=== PATIENT | male | born 1980 | race Two or more races ===

== ENCOUNTER 2018-05-08 05:51 | Inpatient (IN) | payer MEDICARE, OTHER ==
[~2018-05-08] VITALS: Ht 175.3 cm; Wt 96.6 kg
--- NOTE | 2018-05-08 17:02 | History & Physical ---
History and Physical History & Physicial Vital Signs -Extended Height: 69 inches Temperature: 98.6 degrees F (oral) Pulse rate: 61 /min Pulse rhythm: regular Respirations: 13 /min O2 Sat: 95% Blood Pressure: 130/71 mm Hg 05/09/18 History of Present Illness Hx. Source: patient Primary complaint: Patient is here for follow up and evaluation Duration: 3 days Trend of sx: worsening Fever: low grade Treatment: None Additional HPI: 37 year old male patient presents today for follow up. The patient is currently complaining of a insect bite on his right foot with significant drainage and inflammation. He notes redness and tenderness. patient denies any trauma or lul nails Active Medications (reviewed today): NORCO 10-325 MG ORAL TABLET (HYDROCODONE-ACETAMINOPHEN) 1 tab q6hr prn Current Allergies (reviewed today): No known allergies No Known Drug Allergies Past History Past Medical History (reviewed - no changes required): Teratoma Lumbar disc disease L5S1, herniated Asthma Surgical History (reviewed - no changes required): testicular cancer with orchiectomy left 1996 chemotherapy for mature teratoma 1996 metastatic tumor with exploratory abdominal surgery 1997 Family History (reviewed - no changes required): Mother is alive and doing well. Father is alive and doing well. Social History (reviewed - no changes required): Patient lives alone in [place]. Patient is a musician. He has no children. He went to [employer]. 2016 Risk Factors: Smoked Tobacco Use: Current every day smoker Cigarettes: Yes -- 1 pack(s) per day, Year started: 1991 Years smoked: 24 Smokeless Tobacco Use: Former Passive smoke exposure: yes Drug use: yes Substance: marijuana Caffeine use: 1 drinks per day Alcohol use: no Review of Systems General: fevers fatigue Eyes: denies blurring, diplopia, irritation, discharge, vision loss, eye pain, photophobia Ear/Nose/Throat: denies ear pain or discharge, tinnitus, decreased hearing, nasal obstruction or discharge, nosebleeds, sore throat, hoarseness, dysphagia Cardiovascular: stable at present Respiratory: cough shortness of breath intermittent Gastrointestinal: Denies nausea, vomiting, diarrhea, constipation, change in bowel habits, abdominal pain, melena, hematochezia, jaundice Genitourinary: teratoma Skin: SEE HPI Physical Exam General Appearance: well nourished, well hydrated, no acute distress Respiratory Respiratory Effort: no intercostal retractions or use of accessory muscles Palpation: normal fremitus Auscultation: no rales, rhonchi, or wheezes Cardiovascular Palpation: no thrill or palpable murmurs, no displacement of PMI Auscultation: S1, S2, no murmur, rub, or gallop Carotid arteries: pulses 2+, symmetric, no bruits Peripheral Circulation: no cyanosis, clubbing, edema, or varicosities Musculoskeletal Gait and Station: normal but has pain Digits and nails: foot with bite arriola, pus draining associated erythema and inflammation and tenderness Problems Added: Insect bite (ICD-919.4) (NTV76-N16.xxxA) Sciatica (ICD-724.3) (LAS51-D91.30) Foot infection, left (ICD-686.9) (VBP47-H21.9) Assessment RIGHT FOOT INFECTION POSSIBLE ABCESS CHRONIC PAIN ASTHMA BUG BITE Plan IN A PRISON IV ANTIBIOTICS NEEDED ADMIT WOUND CARE CT FOOT LOCAL CARE PAIN CONTROL Jeromy Rod MD May 08, 2018 17:02
[2018-05-09 07:48] VITALS: BP 115/69
[2018-05-09] MEDS ORDERED: Milk of Magnesia 30ml Ud ORAL PRN (10:15)
[2018-05-09] MEDS ORDERED: Zolpidem 5mg tab ORAL PRN (10:15)
[2018-05-09] MEDS: Norco 5mg/325mg tab ORAL PRN ×2 (10:47→22:52)
[2018-05-09 11:04] LABS: BASOPHILS % (AUTO) 1.1 % (0.0-2.0); EOSINOPHILS % (AUTO) 1.3 % (0.0-3.0); HEMATOCRIT 41.9 % (42.0-52.0); HEMOGLOBIN 14.4 G/DL (14.2-18.0); LYMPHOCYTES % (AUTO) 32.8 % (20.0-45.0); MEAN CORPUSCULAR VOLUME 82 FL (80-99); MONOCYTES % (AUTO) 7.8 % (1.0-10.0); NEUTROPHILS % (AUTO) 57.1 % (45.0-75.0); PLATELET COUNT 194 K/UL (150-450); RED BLOOD COUNT 5.13 M/UL (4.70-6.10); RED CELL DISTRIBUTION WIDTH 11.5 % (11.6-14.8); WHITE BLOOD COUNT 8.3 K/UL (4.8-10.8)
[2018-05-09 11:32] LABS: ANION GAP 9 mmol/L (5-15); BLOOD UREA NITROGEN 10 mg/dL (7-18); CALCIUM 9.4 MG/DL (8.5-10.1); CARBON DIOXIDE 25 MMOL/L (21-32); CHLORIDE 105 MMOL/L (98-107); CREATININE 1.2 MG/DL (0.55-1.30); POTASSIUM 3.6 MMOL/L (3.5-5.1); SODIUM 139 MMOL/L (136-145)
--- NOTE | 2018-05-09 12:15 | General Progress Note ---
Assessment/Plan Assessment/Plan cellulitis possible abcess pain patient presented for admission still with drainage and difficulty with weight bearing culture ID evaluation Subjective Allergies: Coded Allergies: No Known Allergies (Unverified , 05/09/18) Objective Last 24 Hour Vital Signs Date Time Temp Pulse Resp B/P (MAP) Pulse Ox O2 Delivery O2 Flow Rate FiO2 05/09/18 11:46 98.1 05/09/18 11:19 Room Air 05/09/18 10:47 98.1 05/09/18 07:48 98.1 56 20 115/69 (84) 100 98.1 Laboratory Tests 05/09/18 10:55: White Blood Count 8.3, Red Blood Count 5.13, Hemoglobin 14.4, Hematocrit 41.9L, Mean Corpuscular Volume 82, Mean Corpuscular Hemoglobin 28.1, Mean Corpuscular Hemoglobin Concent 34.4, Red Cell Distribution Width 11.5L, Platelet Count 194, Mean Platelet Volume 8.1, Neutrophils (%) (Auto) 57.1, Lymphocytes (%) (Auto) 32.8, Monocytes (%) (Auto) 7.8, Eosinophils (%) (Auto) 1.3, Basophils (%) (Auto ) 1.1, Erythrocyte Sedimentation Rate 5, Sodium Level 139, Potassium Level 3.6, Chloride Level 105, Carbon Dioxide Level 25, Anion Gap 9, Blood Urea Nitrogen 10 , Creatinine 1.2, Estimat Glomerular Filtration Rate > 60, Glucose Level 134H, Calcium Level 9.4 Height (Feet): 5 Height (Inches): 9.00 Weight (Pounds): 213 Jeromy Rod MD May 09, 2018 12:15
[2018-05-09] MEDS: Levofloxacin 500mg tab ORAL SCH (12:34)
[2018-05-09 12:49] VITALS: BP 101/53
[2018-05-09] MEDS: Vancomycin 1250mg/D5W 250ml IVPB SCH (13:57)
--- NOTE | 2018-05-09 15:21 | Diagnostic Imaging Report ---
Indication: Insect bite to the right foot, with drainage and inflammation Technique: No IV contrast, per referring physician request Spiral acquisitions obtained through the right foot. Multiplanar reconstructions were generated. Total dose length product 477 mGycm. CTDIvol(s) 15 mGy. Radiation dose was minimized using automated exposure control Comparison: none Findings: Evaluation for abscess is somewhat limited given the absence of IV contrast administration. There is some focal infiltration of the subcutaneous fat of the plantar anterolateral surface of the foot adjacent to the fifth metatarsal head. There is somewhat diffuse but only mild edema of the plantar subcutaneous fat in the region of the metatarsophalangeal joints in general. There is slight circumferential edema about the first digit, most pronounced medially. No definite discrete fluid collection to suggest abscess, although as mentioned above evaluation for such is limited in the absence of IV contrast. The bones are unremarkable. The joint spaces are preserved. No acute fractures or dislocations, osteolytic or osteoblastic process. Impression: Limited assessment for abscess, given absence of IV contrast. Nonetheless, no focal findings suspicious for such are identified. Mild focal edema of the subcutaneous fat adjacent to the fifth metacarpal head and about the great toe. This is nonspecific, but could indicate cellulitis given stated clinical history No acute osseous abnormality. The CT scanner at [facility] is accredited by the [employer] and the scans are performed using protocols designed to limit radiation exposure to as low as reasonably achievable to attain images of sufficient resolution adequate for diagnostic evaluation.
[2018-05-09 20:00] VITALS: BP 108/65
[2018-05-09] MEDS: Zolpidem 5mg tab ORAL PRN (21:33)
[2018-05-10] MEDS: Vancomycin 1250mg/D5W 250ml IVPB SCH ×2 (01:08→13:47)
[2018-05-10 04:00] VITALS: BP 104/45
[2018-05-10] MEDS: Norco 5mg/325mg tab ORAL PRN ×4 (05:06→19:24)
[2018-05-10 08:13] VITALS: BP 106/50
[2018-05-10] MEDS: Levofloxacin 500mg tab ORAL SCH (08:48)
[2018-05-10] MEDS ORDERED: Levofloxacin 500mg tab ORAL SCH (11:38)
[2018-05-10 12:00] VITALS: BP 103/51
--- NOTE | 2018-05-10 15:43 | General Progress Note ---
Assessment/Plan Problem List: (1) Celulitis & infected bite Status: stable Assessment/Plan cont iv abx follow up cultures pain rx wound care Subjective ROS Limited/Unobtainable: No Constitutional: Reports: malaise, weakness HEENT: Reports: no symptoms Cardiovascular: Reports: no symptoms Respiratory: Reports: no symptoms Gastrointestinal/Abdominal: Reports: no symptoms Genitourinary: Reports: no symptoms Neurologic/Psychiatric: Reports: no symptoms Endocrine: Reports: no symptoms Hematologic/Lymphatic: Reports: no symptoms Allergies: Coded Allergies: No Known Allergies (Unverified , 05/09/18) All Systems: reviewed and negative except above Subjective c/o foot pain. CT negative for osteo. +subcut edema Objective Last 24 Hour Vital Signs Date Time Temp Pulse Resp B/P (MAP) Pulse Ox O2 Delivery O2 Flow Rate FiO2 05/10/18 14:49 97.3 05/10/18 13:50 97.3 05/10/18 12:00 97.7 52 20 103/51 (68) 95 97.7 05/10/18 09:00 Room Air 05/10/18 08:51 97.3 05/10/18 08:13 97.3 55 20 106/50 (68) 95 97.3 05/10/18 04:00 97.4 52 20 104/45 (64) 97.4 05/09/18 21:00 Room Air 05/09/18 20:00 97.9 54 19 108/65 (79) 97.9 Intake and Output 05/09/18 05/10/18 19:00 07:00 Intake Total 840 ml 1750.000 ml Balance 840 ml 1750.000 ml Intake Oral 840 ml 1500 ml IV Total 250.000 ml # Voids 1 3 # Bowel Movements 2 Height (Feet): 5 Height (Inches): 9.00 Weight (Pounds): 213 General Appearance: WD/WN, alert Neck: supple Cardiovascular: regular rhythm Respiratory/Chest: lungs clear Abdomen: normal bowel sounds, non tender, soft, no organomegaly Extremities: other - right foot swelling and edema Damien Sadler MD May 10, 2018 15:42
[2018-05-10 16:00] VITALS: BP 106/54
[2018-05-10 20:00] VITALS: BP 96/51
[2018-05-10] MEDS ORDERED: oxyCONTIN 10mg tab ORAL PRN (20:15)
[2018-05-10] MEDS: Zolpidem 5mg tab ORAL PRN (20:29)
[2018-05-11] MEDS: Vancomycin 1250mg/D5W 250ml IVPB SCH (01:48)
[2018-05-11 04:00] VITALS: BP 136/67
[2018-05-11] MEDS: HYDROcodone/Acetamin 10/325 tab ORAL PRN ×4 (04:29→20:23)
--- NOTE | 2018-05-11 07:23 | General Progress Note ---
Assessment/Plan Problem List: (1) Celulitis & infected bite Assessment/Plan cont iv abx follow up cultures/sensitivities pain rx wound care Subjective ROS Limited/Unobtainable: No Constitutional: Reports: no symptoms HEENT: Reports: no symptoms Cardiovascular: Reports: no symptoms Respiratory: Reports: no symptoms Gastrointestinal/Abdominal: Reports: no symptoms Genitourinary: Reports: no symptoms Neurologic/Psychiatric: Reports: no symptoms Endocrine: Reports: no symptoms Hematologic/Lymphatic: Reports: no symptoms Allergies: Coded Allergies: No Known Allergies (Unverified , 05/09/18) All Systems: reviewed and negative except above Subjective c/o foot pain. controlled, with norco. CT negative for osteo. +subcut edema. culture with staph Objective Last 24 Hour Vital Signs Date Time Temp Pulse Resp B/P (MAP) Pulse Ox O2 Delivery O2 Flow Rate FiO2 05/11/18 05:28 98.0 05/11/18 04:29 98.0 05/11/18 04:00 98.2 52 20 136/67 (90) 98 98.2 05/10/18 21:00 Room Air 05/10/18 20:23 98.0 05/10/18 20:00 97.8 50 18 96/51 (66) 99 97.8 05/10/18 19:24 98.0 05/10/18 16:00 98.0 54 18 106/54 (71) 96 98.0 05/10/18 14:49 97.3 05/10/18 13:50 97.3 05/10/18 12:00 97.7 52 20 103/51 (68) 95 97.7 05/10/18 09:00 Room Air 05/10/18 08:51 97.3 05/10/18 08:13 97.3 55 20 106/50 (68) 95 97.3 Intake and Output 05/10/18 05/11/18 19:00 07:00 Intake Total 1850.000 ml 1250.000 ml Output Total 100 ml Balance 1850.000 ml 1150.000 ml Intake Oral 1600 ml 1000 ml IV Total 250.000 ml 250.000 ml Output Urine Total 100 ml # Voids 7 4 Laboratory Tests 05/10/18 18:20: Hemoglobin A1c 5.1 05/10/18 23:50: Vancomycin Level Trough 8.6 Height (Feet): 5 Height (Inches): 9.00 Weight (Pounds): 213 Objective General Appearance: WD/WN, alert Neck: supple Cardiovascular: regular rhythm Respiratory/Chest: lungs clear Abdomen: normal bowel sounds, non tender, soft, no organomegaly Extremities: other - right foot swelling and edema Damien Sadler MD May 11, 2018 07:23
[2018-05-11 08:00] VITALS: BP 107/80
[2018-05-11] MEDS: Levofloxacin 500mg tab ORAL SCH (09:00)
[2018-05-11] MEDS: Vancomycin 1.5 GM/D5W 250ML IVPB SCH ×2 (11:49→21:43)
[2018-05-11 12:30] VITALS: BP 109/59
[2018-05-11 16:00] VITALS: BP 108/53
[2018-05-11 20:00] VITALS: BP 125/61
[2018-05-11] MEDS ORDERED: NS 275ml ONE (21:13)
[2018-05-11] MEDS ORDERED: Tubing IV Secondary IV ONE (21:13)
[2018-05-11] MEDS: Zolpidem 5mg tab ORAL PRN (21:43)
[2018-05-12] MEDS: HYDROcodone/Acetamin 10/325 tab ORAL PRN ×5 (03:28→23:14)
[2018-05-12 04:00] VITALS: BP 114/61
[2018-05-12 08:00] VITALS: BP 122/62
[2018-05-12] MEDS: Levofloxacin 500mg tab ORAL SCH (08:38)
--- NOTE | 2018-05-12 08:40 | General Progress Note ---
Assessment/Plan Problem List: (1) Celulitis & infected bite Status: stable, progressing Assessment/Plan cont iv abx follow up cultures/sensitivities pain rx wound care po abx tomorrow and dc Subjective ROS Limited/Unobtainable: No Constitutional: Reports: no symptoms HEENT: Reports: no symptoms Cardiovascular: Reports: no symptoms Respiratory: Reports: no symptoms Gastrointestinal/Abdominal: Reports: no symptoms Genitourinary: Reports: no symptoms Neurologic/Psychiatric: Reports: no symptoms Endocrine: Reports: no symptoms Hematologic/Lymphatic: Reports: no symptoms Allergies: Coded Allergies: No Known Allergies (Unverified , 05/09/18) All Systems: reviewed and negative except above Subjective decreased foot pain. no fever or chills. on iv abx Objective Last 24 Hour Vital Signs Date Time Temp Pulse Resp B/P (MAP) Pulse Ox O2 Delivery O2 Flow Rate FiO2 05/12/18 08:02 Room Air 05/12/18 08:00 97.8 78 18 122/62 (82) 96 97.8 05/12/18 07:45 97.5 05/12/18 04:00 97.5 57 20 114/61 (78) 98 97.5 05/11/18 21:00 Room Air 05/11/18 20:00 97.9 53 18 125/61 (82) 97 97.9 05/11/18 16:00 98.0 49 20 108/53 (71) 96 98.0 05/11/18 15:38 98.0 05/11/18 14:39 97.9 05/11/18 12:30 97.9 49 18 109/59 (76) 97 97.9 05/11/18 09:00 98.0 05/11/18 09:00 Room Air Intake and Output 05/11/18 05/12/18 19:00 07:00 Intake Total 600 ml 500 ml Balance 600 ml 500 ml Intake Oral 600 ml 500 ml # Voids 10 2 # Bowel Movements 2 Height (Feet): 5 Height (Inches): 9.00 Weight (Pounds): 213 Objective General Appearance: WD/WN, alert Neck: supple Cardiovascular: regular rhythm Respiratory/Chest: lungs clear Abdomen: normal bowel sounds, non tender, soft, no organomegaly Extremities: other - right foot swelling and edema Damien Sadler MD May 12, 2018 08:40
[2018-05-12] MEDS ORDERED: NS 275ml ONE ×2 (10:40→10:41)
[2018-05-12] MEDS: Vancomycin 1.5 GM/D5W 250ML IVPB SCH ×2 (10:48→23:14)
[2018-05-12 12:00] VITALS: BP 114/59
[2018-05-12 15:51] VITALS: BP 113/57
[2018-05-12 20:00] VITALS: BP 121/63
[2018-05-12] MEDS: Zolpidem 5mg tab ORAL PRN (23:14)
[2018-05-13] VITALS: BP 126/67
[2018-05-13] MEDS: HYDROcodone/Acetamin 10/325 tab ORAL PRN ×3 (03:48→12:25)
[2018-05-13 04:00] VITALS: BP 122/64
[2018-05-13 08:00] VITALS: BP 144/73
[2018-05-13] MEDS ORDERED: Vancomycin 1.5 GM/D5W 250ML IVPB SCH (08:00)
--- NOTE | 2018-05-13 08:23 | General Progress Note ---
Assessment/Plan Assessment/Plan cellulitis no clear abcess pain, chronic cultures noted po levaquin wound care dc planning today impression, plan, and exam edited and reviewed in detail care discussed with RN Subjective Allergies: Coded Allergies: No Known Allergies (Unverified , 05/09/18) Subjective improved care noted no distress cultures noted Objective Last 24 Hour Vital Signs Date Time Temp Pulse Resp B/P (MAP) Pulse Ox O2 Delivery O2 Flow Rate FiO2 05/13/18 08:00 Room Air 05/13/18 07:54 98.1 05/13/18 04:47 98.1 05/13/18 04:00 98.1 59 14 122/64 (83) 97 98.1 05/13/18 00:00 98.4 55 14 126/67 (86) 97 98.4 05/12/18 21:00 Room Air 05/12/18 20:00 98.2 54 18 121/63 (82) 100 98.2 05/12/18 19:07 97.6 05/12/18 15:51 97.6 49 18 113/57 (75) 98 97.6 05/12/18 14:49 98.6 05/12/18 12:00 98.6 45 18 114/59 (77) 100 98.6 Intake and Output 05/12/18 05/13/18 19:00 07:00 Intake Total 1930 ml 1000 ml Balance 1930 ml 1000 ml Intake Oral 1680 ml 1000 ml IV Total 250 ml # Voids 6 4 # Bowel Movements 1 Laboratory Tests 05/12/18 21:40: Vancomycin Level Trough 5.9 Height (Feet): 5 Height (Inches): 9.00 Weight (Pounds): 213 Objective WDWN NAD clear breath sounds bilaterally without rhonchi or wheeze [id number] without MRG NABS nontender no HSM no CCE nonfocal foot improved Jeromy Rod MD May 13, 2018 08:23
[2018-05-13] MEDS: Levofloxacin 500mg tab ORAL SCH (08:31)
[2018-05-13] MEDS ORDERED: LEVAQUIN500 MG ORAL (10:11)
[2018-05-13 12:00] VITALS: BP 117/60
--- NOTE | 2018-05-14 14:46 | Discharge Summary ---
Discharge Summary Discharge Summary _ DATE OF ADMISSION: 05/09/2018 DATE OF DISCHARGE: 05/13/2018 REASON FOR ADMISSION: 37 years old male with history of asthma, lumbar disc disease L5-S1 with herniation, asthma, testicular cancer, s/p treatment, presented with complaints of right foot pain. He reported being bitten by bug at this site. Patient reported significant drainage and inflammation. He noted redness and tenderness to touch.. He denied any trauma or lul nails. Vital signs were stable . Laboratory workup was unremarkable. Patient admitted with diagnoses of right foot infection,, possible abscess , bug bite, pain right foot, asthma. HOSPITAL COURSE: Patient admitted. Patient started on empiric antibiotics. Wound care provided. Right foot CAT scan without contrast revealed no focal findings suspicious for abscess. No acute osseous abnormalities were noted. Mild focal edema of the subcutaneous adjacent to the fifth metacarpal head and about the great toe. This could indicate cellulitis, given clinical history. Wound culture revealed Staphylococcus aureus and Streptococci group A. Antibiotic regimen optimized as per attending physician. Pain management was addressed ,m and pain was controlled. Local wound care provided . Supplemental oxygen titrated to keep pulse oximetry above 92A%. Pulse oximetry was stable on room air. Pulmonary toilet provided as needed. No evidence of asthma exacerbations. Stable respiratory status. Bowel regimen instituted. Patient was mobilized with physical therapist with weight bearing as tolerated GI prophylaxis provided. Patient improved, no fever no leukocytosis. Patient was stable for discharge home . Outpatient follow-up with primary care provider in one week FINAL DIAGNOSES: Cellulitis right foot Infected bug bite Chronic pain Asthma DISCHARGE MEDICATIONS: See Medication Reconciliation list. DISCHARGE INSTRUCTIONS: Patient was discharge home. Follow up with primary care provider in one week. I have been assigned to dictate discharge summary for this account. I was not involved in the patient's management. Marzena Estrada NP May 14, 2018 14:46
== END 2018-05-13 13:00 | disposition home or self-care (01) | DRG 603 ==
LOC: 3E 05-09 06:00
DX: L03.115 Cellulitis of right lower limb (principal); J45.909 Unspecified asthma, uncomplicated; S90.861A Insect bite (nonvenomous), right foot, initial encounter; W57.XXXA Bitten or stung by nonvenomous insect and other nonvenomous arthropods, initial encounter; G89.29 Other chronic pain; M51.26 Other intervertebral disc displacement, lumbar region; Z85.47 Personal history of malignant neoplasm of testis
CPT/HCPCS: 36415; 80048; 80202; 83036; 85025; 85651; 87070; 87181; 87205

== ENCOUNTER 2018-05-21 06:34 | Inpatient (IN) | payer MEDICARE, OTHER ==
[~2018-05-21] VITALS: Ht 175.3 cm; Wt 98.9 kg
[~2018-05-21 06:34] MED LIST: LEVAQUIN500 MG ORAL
[2018-05-21 07:09] VITALS: BP 113/61
--- NOTE | 2018-05-21 07:12 | Emergency Room Report ---
History of Present Illness General Chief Complaint: Wound Recheck/Suture Removal Source: Patient Present Illness HPI Patient presents with right foot pain and left calf pain. He was recently admitted for IV antibiotics after bug bite to the right heel. He was discharged on antibiotics at home. Is complaining about left calf pain. He has had the diagnosis of adult teratoma in the leg pr. He states this is causing pain and there is more swelling at this time. He's had no recent evaluation for possible DVT. Denies any chest pain, cough, nausea, vomiting, diarrhea. He states the previously. Pain in his heel and calf are both severe , burning in the right heel aching in the calf radiating up towards the thigh on the left. When asked whether his tox screen of the positive he says that he does smoke marijuana and it might be positive for cocaine. No fevers or chills in the last few days. No cough, dyspnea, hemoptysis recently. No NVD or dysuria. No depression. A CT was done 05/09 which revealed no abscess. Impression: Limited assessment for abscess, given absence of IV contrast. Nonetheless, no focal findings suspicious for such are identified. Mild focal edema of the subcutaneous fat adjacent to the fifth metacarpal head and about the great toe. This is nonspecific, but could indicate cellulitis given stated clinical history No acute osseous abnormality. Allergies: Coded Allergies: No Known Allergies (Unverified , 05/09/18) Patient History Past Medical History: see triage record, old chart reviewed Social History: Reports: smoking, drug use Social History Narrative He got a ride to the hospital Reviewed Nursing Documentation: PMH: Agreed; PSxH: Agreed Nursing Documentation-PMH Hx Cardiac Problems: No Hx Asthma: Yes Hx Cancer: Yes - testicular ca 1996 Hx Gastrointestinal Problems: No Hx Neurological Problems: No Review of Systems All Other Systems: negative except mentioned in HPI Physical Exam Vital Signs Date Time Temp Pulse Resp B/P (MAP) Pulse Ox O2 Delivery O2 Flow Rate FiO2 05/21/18 06:45 98.2 77 16 113/61 95 Room Air 98.2 Sp02 EP Interpretation: reviewed, normal General Appearance: well appearing, no apparent distress, GCS 15 Head: normocephalic Eyes: bilateral eye normal inspection, bilateral eye PERRL ENT: moist mucus membranes Neck: supple Respiratory: lungs clear, normal breath sounds Cardiovascular #1: regular rate, rhythm Cardiovascular #2: 2+ radial (R) Gastrointestinal: normal inspection, normal bowel sounds, non tender, no mass, non-distended Musculoskeletal: back normal, gait/station normal, normal range of motion, calf tenderness, swelling, tender Neurologic: alert, oriented x3, normal gait, speech normal, grossly normal Psychiatric: mood/affect normal, other - poor insight Skin: warm/dry, other - erythema R heel Medical Decision Making Diagnostic Impression: Primary Impression: DVT, lower extremity Qualified Codes: I82.4Z2 - Acute embolism and thrombosis of unspecified deep veins of left distal lower extremity Additional Impressions: UTI (urinary tract infection) Qualified Codes: N30.00 - Acute cystitis without hematuria Partially treated cellulitis R heel Cocaine abuse ER Course Patient presents with 2 problems. One is increased heel pain on the right-hand side. He's taking antibiotics at this time. We need to assess whether there systemic effects of the partially treated infection. X-rays and labs will be taken. The second problem is calf pain on the left-hand side. We need to exclude DVT on that side. The patient will receive IV hydration and a dose of Toradol. WBC normal. EKG no injury. Pyuria - Rocephin ordered. Tox + cocaine. Foot film no gas or osteo. Vasc study + DVT. Lovenox given. Improved pain with treatment. Discussed with Dr. Rod. Admit med. Laboratory Tests Test 05/21/18 07:10 05/21/18 07:25 White Blood Count 9.7 K/UL (4.8-10.8) Red Blood Count 4.68 M/UL (4.70-6.10) L Hemoglobin 13.3 G/DL (14.2-18.0) L Hematocrit 38.4 % (42.0-52.0) L Mean Corpuscular Volume 82 FL (80-99) Mean Corpuscular Hemoglobin 28.3 PG (27.0-31.0) Mean Corpuscular Hemoglobin Concent 34.5 G/DL (32.0-36.0) Red Cell Distribution Width 11.5 % (11.6-14.8) L Platelet Count 214 K/UL (150-450) Mean Platelet Volume 7.4 FL (6.5-10.1) Neutrophils (%) (Auto) 54.6 % (45.0-75.0) Lymphocytes (%) (Auto) 33.8 % (20.0-45.0) Monocytes (%) (Auto) 7.6 % (1.0-10.0) Eosinophils (%) (Auto) 3.0 % (0.0-3.0) Basophils (%) (Auto) 1.0 % (0.0-2.0) Erythrocyte Sedimentation Rate 6 MM/HR (0-15) Prothrombin Time 11.6 SEC (9.30-11.50) H Prothrombin Time INR 1.1 (0.9-1.1) PTT 26 SEC (23-33) Sodium Level 143 MMOL/L (136-145) Potassium Level 3.2 MMOL/L (3.5-5.1) L Chloride Level 106 MMOL/L (98-107) Carbon Dioxide Level 28 MMOL/L (21-32) Anion Gap 9 mmol/L (5-15) Blood Urea Nitrogen 13 mg/dL (7-18) Creatinine 1.3 MG/DL (0.55-1.30) Estimate Glomerular Filtration Rate > 60 mL/min (>60) Glucose Level 112 MG/DL (74-106) H Calcium Level 9.2 MG/DL (8.5-10.1) Total Bilirubin 0.6 MG/DL (0.2-1.0) Aspartate Amino Transferase (AST) 18 U/L (15-37) Alanine Aminotransferase (ALT) 36 U/L (12-78) Alkaline Phosphatase 84 U/L (46-116) Total Creatine Kinase 182 U/L (26-308) Troponin I 0.000 ng/mL (0.000-0.056) Pro-B-Type Natriuretic Peptide 45 pg/mL (0-125) Total Protein 6.6 G/DL (6.4-8.2) Albumin 3.7 G/DL (3.4-5.0) Globulin 2.9 g/dL Albumin/Globulin Ratio 1.3 (1.0-2.7) Urine Color Pale yellow Urine Appearance Clear Urine pH 5 (4.5-8.0) Urine Specific [place] 1.020 (1.005-1.035) Urine Protein Negative (NEGATIVE) Urine Glucose (UA) Negative (NEGATIVE) Urine Ketones Negative (NEGATIVE) Urine Occult Blood 1+ (NEGATIVE) H Urine Nitrite Negative (NEGATIVE) Urine Bilirubin Negative (NEGATIVE) Urine Urobilinogen Normal MG/DL (0.0-1.0) Urine Leukocyte Esterase 3+ (NEGATIVE) H Urine RBC 0-2 /HPF (0 - 0) H Urine WBC 15-20 /HPF (0 - 0) H Urine Squamous Epithelial Cells Occasional /LPF Urine Bacteria Occasional /HPF (NONE) Urine Opiates Screen Negative (NEGATIVE) Urine Barbiturates Screen Negative (NEGATIVE) Phencyclidine (PCP) Screen Negative (NEGATIVE) Urine Amphetamines Screen Negative (NEGATIVE) Urine Benzodiazepines Screen Negative (NEGATIVE) Urine Cocaine Screen Positive (NEGATIVE) H Urine Marijuana (THC) Screen Negative (NEGATIVE) EKG Diagnostic Results Rate: normal Rhythm: NSR ST Segments: no acute changes Rhythm Strip Diag. Results EP Interpretation: yes Rhythm: NSR, no PVC's, no ectopy Other X-Ray Diagnostic Results Other X-Ray Diagnostic Results : X-Ray ordered: R foot # of Views/Limited Vs Complete: 3 View Indication: Other EP Interpretation: Yes Interpretation: no dislocation, no soft tissue swelling, no fractures Impression: No acute disease Electronically Signed by: Sylvain Xiong MD CT/MRI/US Diagnostic Results CT/MRI/US Diagnostic Results : Imaging Test Ordered: Non-invasive vasc study L calf Impression acute on chronic DVT Last Vital Signs Date Time Temp Pulse Resp B/P (MAP) Pulse Ox O2 Delivery O2 Flow Rate FiO2 05/21/18 06:45 98.2 77 16 113/61 95 Room Air 98.2 Status: improved Disposition: ADMITTED INPATIENT Condition: Serious Sylvain Xiong M.D. May 21, 2018 07:12
[2018-05-21] MEDS ORDERED: Ketorolac 30mg Inj IV ONE (07:15)
[2018-05-21 07:28] LABS: HEMATOCRIT 38.4 % (42.0-52.0); HEMOGLOBIN 13.3 G/DL (14.2-18.0); LYMPHOCYTES % (AUTO) 33.8 % (20.0-45.0); MEAN CORPUSCULAR VOLUME 82 FL (80-99); MONOCYTES % (AUTO) 7.6 % (1.0-10.0); NEUTROPHILS % (AUTO) 54.6 % (45.0-75.0); PLATELET COUNT 214 K/UL (150-450); RED BLOOD COUNT 4.68 M/UL (4.70-6.10); RED CELL DISTRIBUTION WIDTH 11.5 % (11.6-14.8); WHITE BLOOD COUNT 9.7 K/UL (4.8-10.8)
[2018-05-21 07:32] LABS: INR 1.1 (0.9-1.1)
[2018-05-21 07:35] LABS: ANION GAP 9 mmol/L (5-15); BLOOD UREA NITROGEN 13 mg/dL (7-18); CALCIUM 9.2 MG/DL (8.5-10.1); CARBON DIOXIDE 28 MMOL/L (21-32); CHLORIDE 106 MMOL/L (98-107); CREATININE 1.3 MG/DL (0.55-1.30); POTASSIUM 3.2 MMOL/L (3.5-5.1); SODIUM 143 MMOL/L (136-145)
[2018-05-21 07:44] LABS: APPEARANCE,URINE CLEAR; BILIRUBIN, URINE NEGATIVE (NEGATIVE); COLOR,URINE PALE YELLOW; GLUCOSE, URINE (UA) NEGATIVE (NEGATIVE); KETONES,URINE NEGATIVE (NEGATIVE); LEUKOCYTE ESTERASE ,URINE 3+ (NEGATIVE); NITRITE,URINE NEGATIVE (NEGATIVE); PH,URINE 5 (4.5-8.0); PROTEIN,URINE NEGATIVE (NEGATIVE); UROBILINOGEN,URINE NORMAL MG/DL (0.0-1.0)
[2018-05-21 07:46] LABS: ALANINE AMINOTRANSFERASE 36 U/L (12-78); ALBUMIN 3.7 G/DL (3.4-5.0); ALBUMIN/GLOBULIN RATIO 1.3 (1.0-2.7); ALKALINE PHOSPHATASE 84 U/L (46-116); ASPARTATE AMINO TRANSFERASE 18 U/L (15-37); BILIRUBIN,TOTAL 0.6 MG/DL (0.2-1.0); CREATINE KINASE 182 U/L (26-308)
[2018-05-21] MEDS ORDERED: cefTRIAXone 1 GM in NS 55 ML IVPB ONE (08:15)
[2018-05-21] MEDS: Enoxaparin 100mg Inj SUBQ SCH ×2 (08:32→20:14)
--- NOTE | 2018-05-21 08:58 | Diagnostic Imaging Report ---
Indication: Right foot pain Technique: 3 views right foot Comparison: none Findings: No acute fractures. No dislocations. Joint spaces are preserved. No osseous erosions or unusual periosteal reaction. Impression: No acute process. No plain radiographic findings to suggest acute osseous myelitis. Note, however, limited sensitivity of plain radiographs for such. If there is high clinical suspicion, consider MRI or bone scan for more sensitive characterization
[2018-05-21 09:04] VITALS: BP 110/65
[2018-05-21] MEDS ORDERED: NORCO 10-325 T1 EACH ORAL (11:11)
[2018-05-21 11:12] VITALS: BP 101/56
--- NOTE | 2018-05-21 14:00 | History and Physical Report ---
DATE OF ADMISSION: 05/21/2018 REASON FOR ADMISSION: DVT. HISTORY OF PRESENT ILLNESS: This is a 38-year-old male, recently discharged after a spider bite and associated cellulitis and cellulitic changes. The patient presented back with noted right foot pain and left calf pain. The patient noted to have evidence of DVT. The patient did have a CT on 05/09/2018 showed no abscess and now being admitted for anticoagulation. The patient apparently resides in a assisted . The patient is unable to care for his wounds well at present. The patient's care discussed and reviewed. No fall, no trauma noted. PAST MEDICAL HISTORY: Notable for chronic pain syndrome, asthma, noted recent cellulitis likely spider bite, L5-S1 disk herniation, testicular cancer, status post chemotherapy in the past. MEDICATIONS: Reviewed. ALLERGIES: Reviewed. SOCIAL HISTORY: The patient is a smoker of one pack per day, started in 1991. The patient does not use any drugs. REVIEW OF SYSTEMS: All 10-points reviewed and otherwise negative. PHYSICAL EXAMINATION: GENERAL: A well-developed male, complaining of pain at present. VITAL SIGNS: Heart rate 56, blood pressure 117/60, temperature 97.7, and respiratory rate 20. HEENT: Negative. Extraocular movements are grossly intact. NECK: Supple. LUNGS: Fairly clear and symmetric. No rhonchi. No wheezes. CARDIAC: Normal S1, S2. Regular rate and rhythm without murmurs, rubs, or gallops. ABDOMEN: Overall soft, nontender, nondistended. EXTREMITIES: Notable for edema of the right heel, some calf tenderness noted. LABORATORY DATA: Reviewed. EKG reviewed. Pyuria noted. Tox screen positive for cocaine. Vascular study was positive for DVT. EKG, normal sinus rhythm. IMPRESSION: 1. Acute DVT. 2. Recent cellulitis. 3. Cocaine use. 4. Asthma history. 5. Testicular cancer history. RECOMMENDATIONS: Supportive care. Anticoagulation with bridge with use of Xarelto on discharge and consider short-term rehabilitation for further monitoring. Jeromy Rod M.D. DR: TANIKA JOB#: [id number] CC: ENRIKE
[2018-05-21 14:16] VITALS: BP 105/52
[2018-05-21] MEDS: HYDROcodone/Acetamin 10/325 tab ORAL PRN ×2 (14:58→20:13)
[2018-05-21 16:01] VITALS: BP 108/60
[2018-05-21 19:38] VITALS: BP 111/60
[2018-05-22] VITALS: BP 102/62
[2018-05-22] MEDS: HYDROcodone/Acetamin 10/325 tab ORAL PRN ×3 (03:51→18:40)
[2018-05-22] MEDS: Zolpidem 5mg tab ORAL PRN (03:59)
[2018-05-22 04:45] VITALS: BP 110/65
[2018-05-22 08:00] VITALS: BP 112/62
--- NOTE | 2018-05-22 10:43 | General Progress Note ---
Assessment/Plan Assessment/Plan 1. Acute DVT. 2. Recent cellulitis. 3. Cocaine use. 4. Asthma history. 5. Testicular cancer history. PLAN patient homeless jose may dc to retirement or snf impression, plan, and exam edited and reviewed in detail care discussed with RN Subjective Allergies: Coded Allergies: No Known Allergies (Unverified , 05/09/18) Subjective stable has some leg pain Objective Last 24 Hour Vital Signs Date Time Temp Pulse Resp B/P (MAP) Pulse Ox O2 Delivery O2 Flow Rate FiO2 05/22/18 04:45 97.5 65 17 110/65 (80) 98 97.5 05/22/18 00:00 96.8 51 17 102/62 (75) 96 96.8 05/21/18 21:00 Room Air 05/21/18 19:38 96.4 53 18 111/60 (77) 99 96.4 05/21/18 16:01 98.0 68 20 108/60 (76) 98 98.0 05/21/18 15:57 97.3 05/21/18 15:50 Room Air 05/21/18 14:58 97.3 05/21/18 14:16 97.3 65 20 105/52 (69) 98 97.3 05/21/18 11:12 98.9 79 20 101/56 99 Room Air 05/21/18 11:12 98.9 79 20 101/56 99 Room Air 98.9 Intake and Output 05/21/18 05/22/18 19:00 07:00 Intake Total 1485 ml Balance 1485 ml Intake Oral 1130 ml IV Total 355 ml # Voids 3 # Bowel Movements 1 Height (Feet): 5 Height (Inches): 9.00 Weight (Pounds): 218 Objective WDWN NAD clear breath sounds bilaterally without rhonchi or wheeze [id number] without MRG NABS nontender no HSM no CCE calf tenderness or swelling nonfocal Jeromy Rod MD May 22, 2018 10:43
[2018-05-22] MEDS: Xarelto 10mg tab ORAL SCH ×2 (11:32→18:44)
[2018-05-22 12:00] VITALS: BP 104/66
[2018-05-22 16:00] VITALS: BP 121/63
[2018-05-22 20:23] VITALS: BP 116/71
[2018-05-23 00:38] VITALS: BP 89/58
[2018-05-23] MEDS: HYDROcodone/Acetamin 10/325 tab ORAL PRN ×5 (01:53→22:17)
[2018-05-23] MEDS: Zolpidem 5mg tab ORAL PRN ×2 (02:01→22:17)
[2018-05-23 03:54] VITALS: BP 105/70
[2018-05-23 07:25] VITALS: BP 103/50
[2018-05-23] MEDS: Xarelto 10mg tab ORAL SCH ×2 (08:08→17:09)
--- NOTE | 2018-05-23 08:43 | General Progress Note ---
Assessment/Plan Assessment/Plan 1. Acute DVT. 2. Recent cellulitis. 3. Cocaine use. 4. Asthma history. 5. Testicular cancer history. PLAN patient homeless jose or ze may dc to senior living or snf today impression, plan, and exam edited and reviewed in detail care discussed with RN Subjective Allergies: Coded Allergies: No Known Allergies (Unverified , 05/09/18) Subjective stable awaiting CM to assist with dispo Objective Last 24 Hour Vital Signs Date Time Temp Pulse Resp B/P (MAP) Pulse Ox O2 Delivery O2 Flow Rate FiO2 05/23/18 08:26 98.6 05/23/18 07:25 98.6 50 17 103/50 (67) 98 98.6 05/23/18 07:06 Room Air 05/23/18 03:54 97.5 55 17 105/70 (82) 98 97.5 05/23/18 02:51 96.8 05/23/18 01:53 96.8 05/23/18 00:38 96.8 57 15 89/58 (68) 98 96.8 05/22/18 20:49 Room Air 05/22/18 20:23 96.3 53 18 116/71 (86) 98 96.3 05/22/18 16:00 97.7 60 20 121/63 (82) 98 97.7 05/22/18 12:00 97.7 60 19 104/66 (79) 98 97.7 05/22/18 09:00 Room Air Intake and Output 05/22/18 05/23/18 19:00 07:00 Intake Total 1100 ml 800 ml Balance 1100 ml 800 ml Intake Oral 1100 ml 800 ml # Voids 5 3 Height (Feet): 5 Height (Inches): 9.00 Weight (Pounds): 218 Objective WDWN NAD clear breath sounds bilaterally without rhonchi or wheeze [id number] without MRG NABS nontender no HSM no CCE calf tenderness or swelling nonfocal Jeromy Rod MD May 23, 2018 08:43
[2018-05-23 13:50] VITALS: BP 121/53
[2018-05-23 15:58] VITALS: BP 93/52
[2018-05-23 19:56] VITALS: BP 156/58
[2018-05-24 04:00] VITALS: BP 105/61
[2018-05-24] MEDS: HYDROcodone/Acetamin 10/325 tab ORAL PRN ×2 (06:17→10:23)
[2018-05-24] MEDS: Xarelto 10mg tab ORAL SCH (08:07)
--- NOTE | 2018-05-24 08:15 | General Progress Note ---
Assessment/Plan Assessment/Plan 1. Acute DVT. 2. Recent cellulitis. 3. Cocaine use. 4. Asthma history. 5. Testicular cancer history. PLAN patient homeless xarelto off lovenox may dc [facility] today; needs safe discharge impression, plan, and exam edited and reviewed in detail care discussed with RN Subjective Allergies: Coded Allergies: No Known Allergies (Unverified , 05/09/18) Subjective stable awaiting CM to assist with dispo Objective Last 24 Hour Vital Signs Date Time Temp Pulse Resp B/P (MAP) Pulse Ox O2 Delivery O2 Flow Rate FiO2 05/24/18 07:16 98.2 05/24/18 06:17 98.2 05/24/18 04:00 98.2 60 18 105/61 (76) 95 98.2 05/23/18 22:17 97.9 05/23/18 20:05 Room Air 05/23/18 19:56 97.9 78 18 156/58 (90) 99 97.9 05/23/18 18:13 98.0 05/23/18 15:58 98.0 55 20 93/52 (66) 96 98.0 05/23/18 13:50 98.6 51 17 121/53 (75) 98 98.6 05/23/18 13:33 98.6 05/23/18 08:26 98.6 Intake and Output 05/23/18 05/24/18 19:00 07:00 Intake Total 940 ml 480 ml Balance 940 ml 480 ml Intake Oral 940 ml 480 ml # Voids 2 3 Height (Feet): 5 Height (Inches): 9.00 Weight (Pounds): 218 Objective WDWN NAD clear breath sounds bilaterally without rhonchi or wheeze [id number] without MRG NABS nontender no HSM no CCE calf tenderness or swelling nonfocal Jeromy Rod MD May 24, 2018 08:14
[2018-05-24 08:43] VITALS: BP 113/57
[2018-05-24 11:59] VITALS: BP 116/62
[2018-05-24] MEDS ORDERED: NORCO 10-325 T1 EACH ORAL (12:26)
[2018-05-24] MEDS ORDERED: XARELTO10 MG ORAL (12:26)
--- NOTE | 2018-05-26 13:54 | Discharge Summary ---
Discharge Summary Discharge Summary _ DATE OF ADMISSION: 05/21/2018 DATE OF DISCHARGE: 05/24/2018 REASON FOR ADMISSION: 38 years old male with past medical history of chronic pain syndrome, asthma, testicular cancer , status post chemotherapy, L5-S1 disc herniation, recent cellulitis likely due to spider bite , presented with right foot and left calf pain. Upon evaluation vital signs were stable, no fever. Laboratory workup revealed no leukocytosis, stable hemoglobin and hematocrit. Potassium 3.2. Troponin negative. Urine toxicology screen was positive for cocaine. Urinalysis showed pyuria and few bacteria. X-ray of the right foot revealed no evidence of fracture . Venous duplex revealed subacute to acute thrombosis superficial femoral vein left lower extremity. Patient started on anticoagulation. Patient admitted with diagnoses of acute DVT, recent cellulitis, asthma, cocaine use, history of testicular cancer, hypokalemia. HOSPITAL COURSE: Patient admitted. Patient started on anticoagulation with Lovenox with bridge and change to Xarelto with discharge. Potassium was replaced. Pain management was addressed, and pain was controlled. Supplemental oxygen and pulmonary toilet were on board as needed. Pulse oximetry was stable on room air, no evidence of respiratory insufficiency or asthma exacerbation. Patient was counseled on abstinent from cocaine. Supportive care provided. Bowel regimen instituted. Urine culture was negative. Patient resides in care home and unable at this time to take care of himself. [facility] to [facility] for [facility] term [facility]. Patient was stable for discharge. FINAL DIAGNOSES: Acute DVT left lower extremity superficial femoral vein Recent cellulitis Asthma Cocaine use History of testicular cancer Hypokalemia DISCHARGE MEDICATIONS: See Medication Reconciliation list. DISCHARGE INSTRUCTIONS: Patient was discharged to the prison facility. Follow up with medical doctor at the facility. I have been assigned to dictate discharge summary for this account. I was not involved in the patient's management. Marzena Estrada NP May 26, 2018 13:54
== END 2018-05-24 13:30 | DRG 301 ==
LOC: EMR 07:10 → 4W 08:30 → EDBEDREQ 08:57
DX: I82.412 Acute embolism and thrombosis of left femoral vein (principal); J45.909 Unspecified asthma, uncomplicated; F14.10 Cocaine abuse, uncomplicated; Z85.47 Personal history of malignant neoplasm of testis; E87.6 Hypokalemia; Z59.0 Homelessness
CPT/HCPCS: 36415; 80053; 80307; 81003; 82550; 83880; 84484; 85025; 85610; 85651; 85730; 87086; 93005; 93971; 99285; J8499

== ENCOUNTER 2018-07-04 19:31 | Emergency (ER) | payer MEDICARE, OTHER ==
[~2018-07-04] VITALS: Ht 175.3 cm; Wt 99.8 kg
[~2018-07-04 19:31] MED LIST changes: +NORCO 10-325 T1 EACH ORAL; +XARELTO10 MG ORAL
[2018-07-04 20:15] VITALS: BP 116/69
[2018-07-04] MEDS ORDERED: Isovue-370 150ml vial INJ PRN (20:30)
--- NOTE | 2018-07-04 20:34 | Emergency Room Report ---
History of Present Illness General Chief Complaint: Dizziness Source: Patient Present Illness HPI 38-year-old male with a reported history of recent left lower extremity DVT 2 months ago reports that he was feeling lightheaded and dizzy as part having a syncopal episode while leaning against a pole earlier this evening. Here reports that he has some pain in the back of his head, but does not recollect passing out completely. He reports he used to take Xarelto for about 6 weeks when he was at a [id number], after the diagnosis of DVT, but then he ran out and never followed up to get more medications. He does report feeling low anterior chest pain, mild, nonradiating, sharp, intermittently since last night. He denies neck pain, fever, or any other new complaints. Allergies: Coded Allergies: No Known Allergies (Unverified , 05/09/18) Patient History Past Medical History: see triage record Reviewed Nursing Documentation: PMH: Agreed; PSxH: Agreed Nursing Documentation-PMH Past Medical History: No History, Except For Hx Cardiac Problems: No - DVT Hx Asthma: Yes Hx Cancer: Yes - testicular ca 1997 Hx Gastrointestinal Problems: No Hx Neurological Problems: No Review of Systems All Other Systems: negative except mentioned in HPI Physical Exam Vital Signs Date Time Temp Pulse Resp B/P (MAP) Pulse Ox O2 Delivery O2 Flow Rate FiO2 07/04/18 20:08 98.5 67 16 105/67 95 Room Air 98.4 Sp02 EP Interpretation: reviewed, normal General Appearance: no apparent distress, alert, non-toxic Head: normocephalic, other - small contusion behind R ear Eyes: bilateral eye normal inspection, bilateral eye PERRL, bilateral eye EOMI ENT: normal ENT inspection, hearing grossly normal, normal pharynx, no angioedema, normal voice, moist mucus membranes Neck: normal inspection, full range of motion, supple, no meningismus, no bony tend, supple/symm/no masses Respiratory: chest non-tender, lungs clear, normal breath sounds, chest symmetrical, palpation of chest normal Cardiovascular #1: normal peripheral pulses, regular rate, rhythm, edema - LLE slight edema when compared to RLE Cardiovascular #2: 2+ radial (R), 2+ radial (L) Gastrointestinal: normal inspection, non tender, soft, no mass, no guarding, no rebound Rectal: deferred Genitourinary: normal inspection, no CVA tenderness Musculoskeletal: back normal, gait/station normal, normal range of motion, non- tender, no calf tenderness, Chriss's Sign negative Neurologic: alert, responsive, 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 Ran out 1 week ago, now with intermittent mild CP since last night and syncope today. Normal CT head, EKG, labs, but pending Chest CTA for PE eval. Will admit for chest pain and to initiate anticoagualation regimen for known DVT. Given ASA 162 and Lovenox injection here. Dr. Rod was the discharging provider and will be the admitting provider per Registration. Dr. Rod sent a tiger text. no change from baseline EKG Diagnostic Results EKG Time: 20:31 EP Interpretation: no st-t changes, no twi's Rate: normal Rhythm: NSR ST Segments: no acute changes ASA given to the pt in ED: No Rhythm Strip Diag. Results Rhythm Strip Time: 20:33 EP Interpretation: yes Rate: 65 Rhythm: NSR, no PVC's, no ectopy CT/MRI/US Diagnostic Results CT/MRI/US Diagnostic Results #1: Imaging Test Ordered: ct head Impression no acute disease CT/MRI/US Diagnostic Results #2: Imaging Test Ordered: ct angio chest Impression pending Last Vital Signs Date Time Temp Pulse Resp B/P (MAP) Pulse Ox O2 Delivery O2 Flow Rate FiO2 07/04/18 20:08 98.5 67 16 105/67 95 Room Air 98.4 Disposition: ADMITTED INPATIENT Condition: Stable Signed Out To: СЕРГЕЙ Chairez M.D Jul 04, 2018 20:34
[2018-07-04 20:57] LABS: BASOPHILS % (AUTO) 1.9 % (0.0-2.0); EOSINOPHILS % (AUTO) 2.9 % (0.0-3.0); HEMATOCRIT 39.7 % (42.0-52.0); HEMOGLOBIN 13.9 G/DL (14.2-18.0); LYMPHOCYTES % (AUTO) 38.8 % (20.0-45.0); MEAN CORPUSCULAR VOLUME 84 FL (80-99); MONOCYTES % (AUTO) 9.2 % (1.0-10.0); NEUTROPHILS % (AUTO) 47.2 % (45.0-75.0); PLATELET COUNT 245 K/UL (150-450); RED BLOOD COUNT 4.73 M/UL (4.70-6.10); RED CELL DISTRIBUTION WIDTH 11.6 % (11.6-14.8); WHITE BLOOD COUNT 8.4 K/UL (4.8-10.8)
[2018-07-04 21:07] LABS: INR 1.1 (0.9-1.1)
[2018-07-04 21:10] LABS: ANION GAP 7 mmol/L (5-15); BLOOD UREA NITROGEN 15 mg/dL (7-18); CALCIUM 8.3 MG/DL (8.5-10.1); CARBON DIOXIDE 29 MMOL/L (21-32); CHLORIDE 109 MMOL/L (98-107); CREATININE 1.5 MG/DL (0.55-1.30); POTASSIUM 3.7 MMOL/L (3.5-5.1); SODIUM 145 MMOL/L (136-145)
[2018-07-04 21:15] LABS: ALANINE AMINOTRANSFERASE 31 U/L (12-78); ALBUMIN 3.6 G/DL (3.4-5.0); ALBUMIN/GLOBULIN RATIO 1.2 (1.0-2.7); ALKALINE PHOSPHATASE 117 U/L (46-116); ASPARTATE AMINO TRANSFERASE 14 U/L (15-37); BILIRUBIN,TOTAL 0.7 MG/DL (0.2-1.0)
[2018-07-04] MEDS ORDERED: Enoxaparin 100mg Inj SUBQ SCH (21:30)
[2018-07-04] MEDS ORDERED: Aspirin Baby 81mg ORAL ONE (21:30)
[2018-07-04] MEDS ORDERED: XARELTO15 MG ORAL (22:25)
[2018-07-04 23:08] VITALS: BP 115/78
--- NOTE | 2018-07-05 09:08 | Diagnostic Imaging Report ---
ndication: Anterior chest pain, mild, nonradiating, intermittently since last night. Dizziness, history of recent deep venous thrombosis Technique: IV administration nonionic contrast. Spiral acquisitions obtained from the lung bases to the lung apices. Multiplanar and 3-D reconstructions were generated. Total dose length product 860.87 mGycm. CTDIvol(s) 26.39 mGy. Dose reduction achieved using automated exposure control Comparison: none Findings: Somewhat suboptimal pulmonary arterial opacification noted. No gross intraluminal filling defects or other findings to suggest acute pulmonary embolus demonstrated. There is some image degradation due to motion artifact. Normal caliber pulmonary arteries. No evidence of right ventricular dilatation. The heart is overall borderline enlarged. No evidence of thoracic aortic aneurysm or dissection. There is common origin of the right brachiocephalic, left common carotid artery, otherwise normal branching anatomy of the great neck vessels. No focal proximal stenosis. The lungs demonstrate apical bullous changes bilaterally, small. No infiltrates, effusions, congestion, masses, or nodules. No pericardial effusion. No mediastinal or hilar mass or adenopathy. No axillary or chest wall mass or adenopathy. Unremarkable esophagus. Included abdominal viscera demonstrates considerable distention of the stomach by food. There is partially imaged right adrenal mass measuring at least 2.6 cm. Fat attenuation indicates this is likely a benign adenoma or myelolipoma. Impression: Somewhat suboptimal contrast bolus, as well as some image degradation due to motion artifact. No gross pulmonary emboli demonstrated No other acute thoracic process demonstrated Bilateral apical minimal bullous changes Incidental finding partially imaged right adrenal mass measuring at least 2.6 cm. Attenuation measurements indicate fat, likely a benign adenoma or myelolipoma This agrees with the preliminary interpretation provided overnight by Dr. Peterson The CT scanner at [facility] is accredited by the [employer] and the scans are performed using protocols designed to limit radiation exposure to as low as reasonably achievable to attain images of sufficient resolution adequate for diagnostic evaluation.
--- NOTE | 2018-07-05 10:09 | Diagnostic Imaging Report ---
Indications: Syncope, dizziness, status post fall Technique: Spiral acquisitions obtained through the brain. Angled axial and coronal 5 x 5 mm slices were reconstructed. Total dose length product 1498.67 mGycm. CTDI vol(s) 70.38 mGy. Dose reduction achieved using automated exposure control Comparison: None. Findings: No acute intracranial hemorrhage or edema. No mass effect nor midline shift. Normal guevara-white differentiation. Visualized orbits and sinuses are unremarkable. The mastoids are clear. The calvarium is intact Impression: Negative This agrees with the preliminary interpretation provided overnight by Dr. Peterson The CT scanner at [facility] is accredited by the [employer] and the scans are performed using protocols designed to limit radiation exposure to as low as reasonably achievable to attain images of sufficient resolution adequate for diagnostic evaluation.
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
--- NOTE | 2018-07-08 14:51 | Cardiology Report ---
APPROVED REPORT EKG Measurement Heart [id number] Normal sinus rhythm with sinus arrhythmia Normal ECG
== END 2018-07-04 23:08 | disposition other institution (70) ==
LOC: EMR 20:49 → 2E 21:29 → UNDOADMIN 21:29 → EDBEDREQ 21:57 → EMR 23:08
DX: R55 Syncope and collapse (principal); J45.909 Unspecified asthma, uncomplicated; Z85.47 Personal history of malignant neoplasm of testis; Z86.718 Personal history of other venous thrombosis and embolism; F17.200 Nicotine dependence, unspecified, uncomplicated; R07.89 Other chest pain
CPT/HCPCS: 36415; 70450; 71275; 80053; 84484; 85025; 85610; 85730; 93005; 93971; 96365; 96366; 96368; 99285; J1650; Q9967

== ENCOUNTER 2018-11-01 17:00 | Emergency (ER) | payer MEDICARE, OTHER ==
[~2018-11-01] VITALS: Ht 175.3 cm; Wt 88.9 kg
[~2018-11-01 17:00] MED LIST changes: +XARELTO15 MG ORAL
[2018-11-01 17:14] VITALS: BP 123/77
[2018-11-01] MEDS ORDERED: HYDROcodone/Acetamin 7.5/325 tab ORAL ONE (17:30)
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
--- NOTE | 2018-11-01 18:17 | Diagnostic Imaging Report ---
EXAM: CT Maxillofacial Without Intravenous Contrast CLINICAL HISTORY: PAIN TECHNIQUE: Axial computed tomography images of the face without intravenous contrast. CTDI is 28.19 mGy and DLP is 560 mGy-cm. One or more of the following dose reduction techniques were used: automated exposure control, adjustment of the mA and/or kV according to patient size, use of iterative reconstruction technique. COMPARISON: No relevant prior studies available. FINDINGS: Bones/joints: No fracture. Soft tissues: Soft tissue swelling and emphysema left side of the face. Lymph nodes: Cervical nodes. Orbits: Unremarkable. Sinuses: No acute sinusitis. IMPRESSION: No fracture.
[2018-11-01] MEDS ORDERED: Penicillin G Potassium 4 MU in NS 55 ML IVPB ONE ×2 (18:30→21:00)
[2018-11-01 19:11] LABS: ANION GAP 8 mmol/L (5-15); BLOOD UREA NITROGEN 7 mg/dL (7-18); CALCIUM 6.5 MG/DL (8.5-10.1); CARBON DIOXIDE 24 MMOL/L (21-32); CHLORIDE 114 MMOL/L (98-107); CREATININE 0.7 MG/DL (0.55-1.30); EOSINOPHILS % (AUTO) 1.4 % (0.0-3.0); HEMATOCRIT 39.2 % (42.0-52.0); HEMOGLOBIN 13.6 G/DL (14.2-18.0); LYMPHOCYTES % (AUTO) 20.6 % (20.0-45.0); MEAN CORPUSCULAR VOLUME 82 FL (80-99); MONOCYTES % (AUTO) 6.6 % (1.0-10.0); NEUTROPHILS % (AUTO) 70.3 % (45.0-75.0); PLATELET COUNT 248 K/UL (150-450); RED BLOOD COUNT 4.77 M/UL (4.70-6.10); RED CELL DISTRIBUTION WIDTH 12.1 % (11.6-14.8); SODIUM 146 MMOL/L (136-145); WHITE BLOOD COUNT 11.9 K/UL (4.8-10.8)
[2018-11-01 19:12] LABS: POTASSIUM 2.7 MMOL/L (3.5-5.1)
[2018-11-01] MEDS ORDERED: AUGMENTIN 875-1 EAC1 ORAL (20:39)
[2018-11-01 20:45] VITALS: BP 128/75
== END 2018-11-01 20:45 | disposition home or self-care (01) ==
LOC: EMR 17:28
DX: K12.2 Cellulitis and abscess of mouth (principal); J45.909 Unspecified asthma, uncomplicated; Z85.47 Personal history of malignant neoplasm of testis; Z86.718 Personal history of other venous thrombosis and embolism
CPT/HCPCS: 36415; 70486; 80048; 85025; 96365; 96366; 99284; J8499